=== PATIENT | male | born 1995 | race Caucasian/White ===

== ENCOUNTER 2021-06-25 18:11 | Emergency (ER) | payer OTHER ==
[~2021-06-25] VITALS: Ht 190.5 cm; Wt 142.9 kg
[2021-06-25] MEDS ORDERED: NAPROSYN500 MG PO (20:38)
[2021-06-25] MEDS ORDERED: CYCLOBENZAPRINE10 MG PO (20:38)
== END 2021-06-25 21:02 | disposition home or self-care (01) ==
LOC: ED 18:11
DX: S06.0X9A Concussion with loss of consciousness of unspecified duration, initial encounter (principal); M54.2 Cervicalgia; F17.200 Nicotine dependence, unspecified, uncomplicated; W22.8XXA Striking against or struck by other objects, initial encounter; Y93.89 Activity, other specified; Y92.89 Other specified places as the place of occurrence of the external cause; Y99.8 Other external cause status